=== PATIENT | female | born 1970 | race Caucasian/White ===

== ENCOUNTER 2023-06-01 15:50 | Emergency (ER) | payer OTHER, SELFPAY ==
[2023-06-01] VITALS (12 sets, daily range): BP systolic 105–123; BP diastolic 64–75; PULSE 56–69; RESP 18–20; TEMP 36.9; O2SAT 97–100; BMI 26.6
--- NOTE | 2023-06-01 16:22 | DI.RAD.S_ITS ---
PROCEDURE: XR CHEST 1V INDICATIONS: chest pain TECHNIQUE: One view of the chest was acquired. COMPARISON: None. FINDINGS: Surgical changes and devices: None. Lungs and pleura: Lungs are clear. Right mid to upper lobe nodule versus vessel on end. No pleural effusions or pneumothorax. Mediastinum: Mediastinal contours appear normal. Heart size is normal. Bones and chest wall: No suspicious bony lesions. Overlying soft tissues appear unremarkable. IMPRESSION: No acute cardiopulmonary process. Right mid to upper lobe nodule versus vessel on and. Recommend follow-up x-ray to assess stability or nonurgent CT of the chest follow-up. Dictated by: Issa Davis M.D. on 06/01/2023 at 17:14 Approved by: Issa Davis M.D. on 06/01/2023 at 17:15
[2023-06-01 16:48] LABS: Add Manual Diff / Slide Review NO; Basophils Absolute Auto 100 /uL (0-100); Basophils Percent Auto 0.7 % (0-2); Eosinophils Absolute Auto 100 /uL (0-450); Eosinophils Percent Auto 1.7 % (2-4); Hematocrit 38.3 % (36-46); Hemoglobin 12.3 g/dL (12.0-16.0); Lymphocytes Absolute Auto 2500 /uL (1100-4500); Lymphocytes Percent Auto 30.5 % (25-40); Mean Corpuscular HGB Conc 32.2 % (30-36); Mean Corpuscular Hemoglobin 24.8 PG (26-34); Monocytes Absolute Auto 500 /uL (0-900); Monocytes Percent Auto 5.8 % (3-14); Neutrophils Absolute Auto 5000 /uL (1500-7000); Neutrophils Percent Auto 61.3 % (50-75); Platelet Count 251 X10^3/uL (150-400); Red Blood Cell Count 4.97 X10^6/uL (4.0-5.2); Red Cell Distribution Width 25.8 % (11.6-14.8); White Blood Cell Count 8.2 X10^3/uL (4.5-11.0)
[2023-06-01 16:52] LABS: Prothrombin Time 11.2 SECONDS (10.1-12.7)
[2023-06-01 16:54] LABS: PTT Partial Thromboplastin Tim 32 SECONDS (26-36)
[2023-06-01 16:56] LABS: Alanine Aminotransferase 28 IU/L (<35); Albumin 4.6 g/dL (3.5-5.0); Albumin Globulin Ratio 1.4 (1.0-2.8); Alkaline Phosphatase 62 U/L (38-126); Aspartate Aminotransferase 35 IU/L (14-36); BUN Creatinine Ratio 16.3 (6-22); Bilirubin Total 0.3 mg/dL (0.2-1.3); Blood Urea Nitrogen 14 mg/dL (7-17); Calcium 9.6 mg/dL (8.4-10.2); Carbon Dioxide 26 mmol/L (22-32); Chloride 104 mmol/L (98-107); Creatine Kinase 241 U/L (30-135); Estimated Glomerular Filt Rate > 60 mL/min (>60); Globulin 3.2 g/dL (1.7-4.1); Glucose 92 mg/dL (70-100); HEMOLYSIS < 15 (0-50); Lipase 71 U/L (23-300); Magnesium 2.3 mg/dL (1.6-2.3); Potassium 3.8 mmol/L (3.4-5.1); Sodium 138 mmol/L (137-145); Total Protein 7.8 g/dL (6.3-8.2)
[2023-06-01 17:04] LABS: Microcytosis 1+
[2023-06-01 17:07] LABS: Troponin I < 0.012 ng/mL (0.01-0.034)
--- NOTE | 2023-06-01 18:01 | ED.CHESTPAIN ---
HPI - Chest Pain General Chief Complaint: Chest Pain Stated Complaint: low iron/feels like passing out Time Seen by Provider: 06/01/23 18:01 Source: patient Mode of arrival: Wheelchair Limitations: no limitations Related Data Allergies Allergy/AdvReac Type Severity Reaction Status Date / Time iodine Allergy Hives Verified 06/01/23 16:17 Patient History Social History Smoking Status: Never smoker Smoking Status: Never smoker alcohol intake frequency: holidays/special occasions only Substance Use Type: does not use Exam Initial Vital Signs Initial Vital Signs: Vital Signs Temperature 98.4 F 06/01/23 16:17 Pulse Rate 60 06/01/23 16:17 Respiratory Rate 18 06/01/23 16:17 Blood Pressure 123/75 06/01/23 16:17 Pulse Oximetry 99 06/01/23 16:17 Oxygen Delivery Method Room Air 06/01/23 16:17 Course Orders Ordered: ED Orders 06/01/23 16:22 XR chest 1V Stat EKG-12 Lead Stat 06/01/23 16:33 Complete Blood Count AUTO DIFF Stat Comprehensive Metabolic Panel Stat Lipase Stat Magnesium Stat PTT Partial Thromboplastin Festus Stat Prothrombin Time INR Stat Troponin & CK Cardiac Panel Stat Vital Signs Vital signs: Vital Signs - 8 hr 06/01/23 16:17 Temperature 98.4 F Pulse Rate 60 Respiratory Rate 18 Blood Pressure 123/75 Pulse Oximetry 99 Oxygen Delivery Method Room Air MDM - Chest Pain Lab Data 06/01/23 16:33 06/01/23 16:33 Labs: Lab Results 06/01/23 06/01/23 06/01/23 Range/Units 16:33 16:33 16:33 WBC 8.2 (4.5-11.0) X10^3/uL RBC 4.97 (4.0-5.2) X10^6/uL Hgb 12.3 (12.0-16.0) g/dL Hct 38.3 (36-46) % MCV 77.0 L (80-100) fL MCH 24.8 L (26-34) PG MCHC 32.2 (30-36) % RDW 25.8 H (11.6-14.8) % Plt Count 251 (150-400) X10^3/uL Neut % (Auto) 61.3 (50-75) % Lymph % (Auto) 30.5 (25-40) % [place] % (Auto) 5.8 (3-14) % Eos % (Auto) 1.7 L (2-4) % Baso % (Auto) 0.7 (0-2) % Neut # (Auto) 5000 (3502-5030) /uL Lymph # (Auto) 2500 (3669-4324) /uL [place] # (Auto) 500 (0-900) /uL Eos # (Auto) 100 (0-450) /uL Baso # (Auto) 100 (0-100) /uL RBC Morphology See below Microcytosis 1+ H PT 11.2 (10.1-12.7) SECONDS INR 1.0 (0.9-1.3) APTT 32 (26-36) SECONDS Sodium 138 (137-145) mmol/L Potassium 3.8 (3.4-5.1) mmol/L Chloride 104 (98-107) mmol/L Carbon Dioxide 26 (22-32) mmol/L BUN 14 (7-17) mg/dL Creatinine 0.86 (0.52-1.04) mg/dL Estimated GFR > 60 (>60) mL/min BUN/Creatinine Ratio 16.3 (6-22) Glucose 92 (70-100) mg/dL Calcium 9.6 (8.4-10.2) mg/dL Magnesium 2.3 (1.6-2.3) mg/dL Total Bilirubin 0.3 (0.2-1.3) mg/dL AST 35 (14-36) IU/L ALT 28 (<35) IU/L Alkaline Phosphatase 62 (38-126) U/L Total Creatine Kinase 241 H (30-135) U/L Troponin I < 0.012 (0.01-0.034) ng/mL Total Protein 7.8 (6.3-8.2) g/dL Albumin 4.6 (3.5-5.0) g/dL Globulin 3.2 (1.7-4.1) g/dL Albumin/Globulin Ratio 1.4 (1.0-2.8) Lipase 71 (23-300) U/L Discharge Plan Departure Referrals: Desire Leal, ELIZA [Primary Care Provider] -
--- NOTE | 2023-06-01 18:54 | PC.NURSE ---
pt has hx of celiac disease and states that she has always had a problem with being anemic. pt noticed that recently her periods have been very heavy and she has felt more dizzy and brain fog over the last few days. pt denies chest pain but states that sometimes she feels palpitations and tightness. pt denies SOB.
--- NOTE | 2023-06-01 21:35 | ED_ITS ---
HPI - Chest Pain General Chief Complaint: Chest Pain Stated Complaint: low iron/feels like passing out Time Seen by Provider: 06/01/23 18:01 Source: patient Mode of arrival: Wheelchair Limitations: no limitations History of Present Illness HPI narrative: Patient is a 53-year-old female who has a history of iron deficiency anemia heavy menstrual cycles presents today she feels like she might pass out she is had some thought difficulty some shortness of breath with exertion. She reports that she went to [place] 2 weeks ago she is a family history of DVTs. She is concerned because her iron levels are still low her PCP is ordering her an iron infusion. She denies any fever or chills she occasionally has chest pain and palpitations but not currently. She reports that she was on her menstrual cycle and it was very heavy. She is been seen by OB. She is currently asking if she can eat her pizza. Related Data Allergies Allergy/AdvReac Type Severity Reaction Status Date / Time iodine Allergy Hives Verified 06/01/23 16:17 Review of Systems Review of Systems ROS Unobtainable: All systems reviewed & are unremarkable except as noted in HPI and below Patient History Social History Smoking Status: Never smoker Smoking Status: Never smoker alcohol intake frequency: holidays/special occasions only Substance Use Type: does not use Exam Initial Vital Signs Initial Vital Signs: Vital Signs Temperature 98.4 F 06/01/23 16:17 Pulse Rate 60 06/01/23 16:17 Respiratory Rate 18 06/01/23 16:17 Blood Pressure 123/75 06/01/23 16:17 Pulse Oximetry 99 06/01/23 16:17 Oxygen Delivery Method Room Air 06/01/23 16:17 GENERAL: Alert well-appearing 53-year-old female and in no acute distress. HEENT: Head atraumatic,EOMI, pupils reactive, face symmetric, moist mucous membranes CARDIOVASCULAR: Regular rate and rhythm without murmurs, rubs or gallops. RESPIRATORY: Breath sounds equal bilaterally, no wheezes rales or rhonchi. ABDOMEN: Soft, nontender. Normoactive bowel sounds all 4 quadrants. No g uarding or rebound. EXTREMITIES: Normal range of motion, no clubbing or edema. Neurovascularly inta ct NEUROLOGICAL: Alert and oriented x4. SKIN: Warm, dry, no laceration, no petechiae, no rashes or lesions. Scores PERC Score Age greater than or equal to 50 years: Yes Heart rate greater than or equal to 100 bpm: No Room Air O2 Sat less than 95%: No Unilateral leg swelling: No Recent trauma or surgery: No Hemoptysis: No Prior PE or DVT: No Hormone Use: No Total PERC Score: 1 Course Orders Ordered: ED Orders 06/01/23 22:10 D Dimer Stat Vital Signs Vital signs: Vital Signs - 8 hr 06/01/23 21:00 06/01/23 21:01 06/01/23 21:01 Pulse Rate 56 L 56 L Blood Pressure 114/64 Pulse Oximetry 100 99 Oxygen Delivery Method Room Air Room Air 06/01/23 21:30 06/01/23 21:30 06/01/23 22:00 Pulse Rate 69 Blood Pressure 120/70 114/72 Pulse Oximetry 99 Oxygen Delivery Method Room Air 06/01/23 22:00 06/01/23 22:12 06/01/23 22:12 Pulse Rate 59 L 60 Blood Pressure 113/69 Pulse Oximetry 97 97 Oxygen Delivery Method Room Air Room Air 06/01/23 22:30 06/01/23 22:30 Pulse Rate 56 L Blood Pressure 113/65 Pulse Oximetry 97 Oxygen Delivery Method Room Air MDM - Chest Pain Lab Data 06/01/23 16:33 06/01/23 16:33 Labs: Lab Results 06/01/23 06/01/23 06/01/23 Range/Units 16:33 16:33 16:33 WBC 8.2 (4.5-11.0) X10^3/uL RBC 4.97 (4.0-5.2) X10^6/uL Hgb 12.3 (12.0-16.0) g/dL Hct 38.3 (36-46) % MCV 77.0 L (80-100) fL MCH 24.8 L (26-34) PG MCHC 32.2 (30-36) % RDW 25.8 H (11.6-14.8) % Plt Count 251 (150-400) X10^3/uL Neut % (Auto) 61.3 (50-75) % Lymph % (Auto) 30.5 (25-40) % [place] % (Auto) 5.8 (3-14) % Eos % (Auto) 1.7 L (2-4) % Baso % (Auto) 0.7 (0-2) % Neut # (Auto) 5000 (7108-3114) /uL Lymph # (Auto) 2500 (5361-9137) /uL [place] # (Auto) 500 (0-900) /uL Eos # (Auto) 100 (0-450) /uL Baso # (Auto) 100 (0-100) /uL RBC Morphology See below Microcytosis 1+ H PT 11.2 (10.1-12.7) SECONDS INR 1.0 (0.9-1.3) APTT 32 (26-36) SECONDS D-Dimer (<500) ng/ml Sodium 138 (137-145) mmol/L Potassium 3.8 (3.4-5.1) mmol/L Chloride 104 (98-107) mmol/L Carbon Dioxide 26 (22-32) mmol/L BUN 14 (7-17) mg/dL Creatinine 0.86 (0.52-1.04) mg/dL Estimated GFR > 60 (>60) mL/min BUN/Creatinine Ratio 16.3 (6-22) Glucose 92 (70-100) mg/dL Calcium 9.6 (8.4-10.2) mg/dL Magnesium 2.3 (1.6-2.3) mg/dL Total Bilirubin 0.3 (0.2-1.3) mg/dL AST 35 (14-36) IU/L ALT 28 (<35) IU/L Alkaline Phosphatase 62 (38-126) U/L Total Creatine Kinase 241 H (30-135) U/L Troponin I < 0.012 (0.01-0.034) ng/mL Total Protein 7.8 (6.3-8.2) g/dL Albumin 4.6 (3.5-5.0) g/dL Globulin 3.2 (1.7-4.1) g/dL Albumin/Globulin Ratio 1.4 (1.0-2.8) Lipase 71 (23-300) U/L 06/01/23 Range/Units 22:10 WBC (4.5-11.0) X10^3/uL RBC (4.0-5.2) X10^6/uL Hgb (12.0-16.0) g/dL Hct (36-46) % MCV (80-100) fL MCH (26-34) PG MCHC (30-36) % RDW (11.6-14.8) % Plt Count (150-400) X10^3/uL Neut % (Auto) (50-75) % Lymph % (Auto) (25-40) % [place] % (Auto) (3-14) % Eos % (Auto) (2-4) % Baso % (Auto) (0-2) % Neut # (Auto) (6855-0622) /uL Lymph # (Auto) (0781-4096) /uL [place] # (Auto) (0-900) /uL Eos # (Auto) (0-450) /uL Baso # (Auto) (0-100) /uL RBC Morphology Microcytosis PT (10.1-12.7) SECONDS INR (0.9-1.3) APTT (26-36) SECONDS D-Dimer < 215 (<500) ng/ml Sodium (137-145) mmol/L Potassium (3.4-5.1) mmol/L Chloride (98-107) mmol/L Carbon Dioxide (22-32) mmol/L BUN (7-17) mg/dL Creatinine (0.52-1.04) mg/dL Estimated GFR (>60) mL/min BUN/Creatinine Ratio (6-22) Glucose (70-100) mg/dL Calcium (8.4-10.2) mg/dL Magnesium (1.6-2.3) mg/dL Total Bilirubin (0.2-1.3) mg/dL AST (14-36) IU/L ALT (<35) IU/L Alkaline Phosphatase (38-126) U/L Total Creatine Kinase (30-135) U/L Troponin I (0.01-0.034) ng/mL Total Protein (6.3-8.2) g/dL Albumin (3.5-5.0) g/dL Globulin (1.7-4.1) g/dL Albumin/Globulin Ratio (1.0-2.8) Lipase (23-300) U/L Imaging Data Chest x-ray: Radiologist's Impression: PROCEDURE:? XR CHEST 1V ? INDICATIONS:? chest pain ? TECHNIQUE:? One view of the chest was acquired.? ? COMPARISON:? None. ? FINDINGS:? ? Surgical changes and devices:? None.? ? Lungs and pleura:? Lungs are clear.? Right mid to upper lobe nodule versus vessel on end. ?No pleural effusions or pneumothorax.? ? Mediastinum:? Mediastinal contours appear normal.? Heart size is normal.? ? Bones and chest wall:? No suspicious bony lesions.? Overlying soft tissues appear unremarkable.? ? IMPRESSION:? No acute cardiopulmonary process.? Right mid to upper lobe nodule versus vessel on and.? Recommend follow-up x-ray to assess stability or nonurgent CT of the chest follow-up.? ? Dictated by: Issa Davis M.D. on 06/01/2023 at 17:14 ? ? Approved by: Issa Davis M.D. on 06/01/2023 at 17:15 ? ECG Data Interpretation: Normal sinus rhythm rate 59 MO interval 216 QRS [address] changes no priors to compare MDM Narrative Medical decision making narrative: Patient through 53-year-old female presents with vague fatigue like symptoms. She is not anemic MCV is 77 iron studies are not ordered her PCP has done those. She is hemodynamic stable. She has a PERC score of 1 with a negative years D- dimer is negative unlikely to be pulmonary embolism. She has neurovascularly intact with a NIH stroke scale of 0. At this time recommend outpatient follow- up for her iron infusion. She certainly is not anemic requiring blood transfusion. She certainly has no evidence of sepsis. Discharge Plan Departure Patient Disposition: Home Clinical Impression: Fatigue Instructions: DI for Fatigue Activity Restrictions/Additional Instructions: *You have been diagnosed with fatigue *What to do: At this time please follow-up with your PCP in regards to your iron infusions. Blood work today is overall stable. *Continue to take medications as directed *Follow up with your primary care provider in 2-3 days or call [phone] *Return to ER if you should have increasing confusion shortness of breath or any new, worsening or concerning symptoms Referrals: Desire Leal ARNP [Primary Care Provider] - Stand Alone Forms: Patient Portal/API
[2023-06-01 22:36] LABS: D Dimer < 215 ng/ml (<500)
== END 2023-06-01 22:55 | disposition home or self-care (01) ==
PROVIDERS: Emergency Medicine; Emergency Provider Emergency Medicine; PCP Nurse Practitioner Family
DX: R53.83 Other fatigue (principal); R07.9 Chest pain, unspecified
CPT/HCPCS: 36415; 71045; 80053; 82550; 83690; 83735; 84484; 85025; 85379; 85610; 85730; 93005; 93010; 99284

== ENCOUNTER 2024-05-05 14:51 | Emergency (ER) | payer OTHER, SELFPAY ==
[2024-05-05] VITALS (10 sets, daily range): BP systolic 112–114; BP diastolic 65–75; PULSE 52–63; RESP 16; TEMP 36.7; O2SAT 91–97; BMI 26.6
--- NOTE | 2024-05-05 15:02 | DI.CT.S_ITS ---
PROCEDURE: CT ABDOMEN PELVIS W CON INDICATIONS: lower abd pain TECHNIQUE: After the administration of intravenous contrast, axial sections acquired from the lung bases to the pubic symphysis. Coronal and sagittal reformats were performed. For radiation dose reduction, the following was used: automated exposure control, adjustment of mA and/or kV according to patient size. COMPARISON: None. FINDINGS: Image quality: Diagnostic. Lower Chest: No significant findings. ABDOMEN: Liver: No solid mass. Gallbladder: No radiopaque gallstones or wall thickening. Biliary ducts: No biliary dilation. Pancreas: No ductal dilation. Spleen: Size is within normal limits. Adrenal Glands: No adrenal nodules. Kidneys and Ureters: No hydronephrosis. No solid mass. No complex renal cystic lesion which requires follow up. Stomach and Bowel: There is an apparent prior right hemicolectomy. The remaining colon is unremarkable. Negative for diverticulitis. No dilated loops of small bowel are seen. The stomach demonstrates no significant abnormality. Peritoneum: No abnormal intraperitoneal fluid. No free air. Ventral Wall: No significant ventral hernia. Abdominal Nodes: No retroperitoneal or mesenteric adenopathy by size criteria. Vessels: Aorta and inferior vena cava are normal in size. PELVIS: Pelvic Organs: This patient is status post hysterectomy. No adnexal masses are seen. Bladder: No bladder wall thickening, accounting for underdistention. Pelvic Nodes: No enlarged lymph nodes. Miscellaneous: No inguinal hernias are seen. Bones: No aggressive osseous abnormality. Age-appropriate bony degenerative changes are seen. IMPRESSION: No cause of lower abdominal pain can be seen. Negative for diverticulitis. Negative for bowel obstruction. Apparent prior right hemicolectomy. Please correlate with known patient history. Additional findings: Hysterectomy Dictated by: Nish Whitaker M.D. on 05/05/2024 at 16:11 Approved by: Nish Whitaker M.D. on 05/05/2024 at 16:13
[2024-05-05] MEDS: ONDANSETRON 4 MG/2 ML INJ IV (15:16)
[2024-05-05] MEDS: SODIUM CHLORIDE 0.9% 1,000 ML 1000 ML IV (15:16)
[2024-05-05 15:17] LABS: Add Manual Diff / Slide Review NO; Basophils Absolute Auto 100 /uL (0-100); Basophils Percent Auto 0.8 % (0-2); Eosinophils Absolute Auto 100 /uL (0-450); Eosinophils Percent Auto 1.5 % (2-4); Hematocrit 42.8 % (36-46); Hemoglobin 14.7 g/dL (12.0-16.0); Lymphocytes Absolute Auto 1800 /uL (1100-4500); Lymphocytes Percent Auto 20.7 % (25-40); Mean Corpuscular HGB Conc 34.2 % (30-36); Mean Corpuscular Hemoglobin 31.8 PG (26-34); Mean Corpuscular Volume 92.9 fL (80-100); Monocytes Absolute Auto 600 /uL (0-900); Monocytes Percent Auto 6.3 % (3-14); Neutrophils Absolute Auto 6300 /uL (1500-7000); Neutrophils Percent Auto 70.7 % (50-75); Platelet Count 218 X10^3/uL (150-400); Red Blood Cell Count 4.61 X10^6/uL (4.0-5.2); Red Cell Distribution Width 13.2 % (11.6-14.8); White Blood Cell Count 8.9 X10^3/uL (4.5-11.0)
--- NOTE | 2024-05-05 15:17 | ED_ITS ---
HPI - Abdominal Pain <ELIZA Payne - Last Filed: 05/05/24 17:51> General Chief Complaint: Abdominal Pain Stated Complaint: lower abd px Time Seen by Provider: 05/05/24 15:02 Source: patient Mode of arrival: Family Vehicle History of Present Illness HPI narrative: 53-year-old female, with history of celiac disease, hysterectomy, appendectomy, presents to the emergency department with right lower quadrant pain x 2 hours. Patient reports that she had a colonoscopy and EGD earlier this year that were both normal. Patient reports that she and her ate a sandwich and clam chowder, and shortly afterwards started having this right lower quadrant cramping pain. Patient's was not experiencing any symptoms. Patient states it would be a severe cramp that would slowly resolve spontaneously. Last bowel movement was 45 minutes ago. Related Data Allergies Allergy/AdvReac Type Severity Reaction Status Date / Time iodine Allergy Hives Verified 06/01/23 16:17 Review of Systems <ELIZA Payne - Last Filed: 05/05/24 17:51> Review of Systems Narrative: Narrative: See HPI. GENERAL: Denies chills, fatigue, fever, sweats. HEENT: Denies sinus pain, ear pain, sore throat, difficulty swallowing, dizziness. RESPIRATORY: Denies dyspnea, cough, wheezing, sputum. CARDIOVASCULAR: Denies chest pain, palpitations, edema. GASTROINTESTINAL: Denies nausea, vomiting, diarrhea, constipation. Endorses right lower quadrant abdominal pain. : Denies dysuria, frequency, incontinence, hematuria, urinary retention, flank pain. MSK: Denies weakness, joint pain, or bony pain. SKIN: Denies rash, skin lesions, or pruritis. NEUROLOGIC: Denies weakness, dizziness, headache, numbness, confusion. PSYCHIATRIC: No concerning psychosocial issues. Patient History <ELIZA Payne - Last Filed: 05/05/24 17:51> Social History Smoking Status: Never smoker Smoking Status: Never smoker alcohol intake frequency: holidays/special occasions only Substance Use Type: does not use Exam <ELIZA Payne - Last Filed: 05/05/24 17:51> Narrative Exam Narrative: Exam Narrative: GENERAL: This is a well-nourished, well-developed patient, in no acute distress. HEAD: Atraumatic. Normocephalic. EYES: Pupils equal round and reactive. Extraocular motions intact. No scleral icterus, injection or drainage. ENT: Nose without bleeding, purulent drainage. Throat without erythema, tonsillar hypertrophy or exudate. Uvula midline. Airway patent. TMs and canals clear. No sinus tenderness. NECK: Trachea midline. No JVD or lymphadenopathy. Nontender. CARDIOVASCULAR: Regular rate and rhythm without murmurs, peripheral pulses intact, cap refill <2 sec. RESPIRATORY: Breath sounds equal and clear bilaterally. No wheezes, rales, or rhonchi. No cough. No increased respiratory effort. No accessory muscle use. GASTROINTESTINAL: Abdomen soft, tenderness of right lower quadrant, nondistended without guarding or rebound. Mild suprapubic pain. MSK: Moves all extremities. Normal range of motion, no clubbing or edema. Neurovascularly intact. NEURO: A&O x 3. SKIN: Warm, dry, no rashes or lesions noted. Initial Vital Signs Initial Vital Signs: Vital Signs Temperature 98.1 F 05/05/24 14:53 Pulse Rate 62 05/05/24 14:53 Respiratory Rate 16 05/05/24 14:53 Blood Pressure 114/75 05/05/24 14:53 Pulse Oximetry 97 05/05/24 14:53 Oxygen Delivery Method Room Air 05/05/24 14:53 Reviewed <Demar Martinez DO - Last Filed: 05/05/24 18:00> Initial Vital Signs Initial Vital Signs: Vital Signs Temperature 98.1 F 05/05/24 14:53 Pulse Rate 62 05/05/24 14:53 Respiratory Rate 16 05/05/24 14:53 Blood Pressure 114/75 05/05/24 14:53 Pulse Oximetry 97 05/05/24 14:53 Oxygen Delivery Method Room Air 05/05/24 14:53 Course <ELIZA Payne - Last Filed: 05/05/24 17:51> Orders Ordered: ED Orders 05/05/24 15:02 CT abdomen pelvis w con Stat 05/05/24 15:09 Complete Blood Count AUTO DIFF Stat Comprehensive Metabolic Panel Stat Lipase Stat Discontinued Medications Diphenhydramine HCl (Diphenhydramine 50 Mg/Ml Vial) 25 mg IV NOW ONE Stop: 05/05/24 15:39 Last Admin: 05/05/24 15:45 Dose: 25 mg Documented By: BENJI Sodium Chloride (Normal Saline 0.9%) 1,000 mls @ 1,000 mls/hr IV BOLUS ONE Stop: 05/05/24 16:01 Last Infusion: 05/05/24 17:18 Dose: Infused Documented By: Admin: 05/05/24 15:16 Dose: 1,000 mls/hr Documented By: ZAHIDA Methylprednisolone (Methylprednisolone 125 Mg/2 Ml Vial) 125 mg IV NOW ONE Stop: 05/05/24 15:39 Last Admin: 05/05/24 15:44 Dose: 125 mg Documented By: BENJI Ondansetron HCl (Ondansetron 4 Mg/2 Ml Inj) 4 mg IV NOW ONE Stop: 05/05/24 15:03 Last Admin: 05/05/24 15:16 Dose: 4 mg Documented By: ZAHIDA Vital Signs Vital signs: Vital Signs - 8 hr 05/05/24 14:53 05/05/24 15:19 05/05/24 15:30 Temperature 98.1 F Pulse Rate 62 63 55 L Respiratory Rate 16 Blood Pressure 114/75 Pulse Oximetry 97 97 91 Oxygen Delivery Method Room Air 05/05/24 16:00 05/05/24 16:30 05/05/24 17:00 Temperature Pulse Rate 54 L 52 L 59 L Respiratory Rate Blood Pressure Pulse Oximetry 96 95 94 Oxygen Delivery Method <Demar Martinez DO - Last Filed: 05/05/24 18:00> Orders Ordered: ED Orders 05/05/24 15:02 CT abdomen pelvis w con Stat 05/05/24 15:09 Complete Blood Count AUTO DIFF Stat Comprehensive Metabolic Panel Stat Lipase Stat Discontinued Medications Diphenhydramine HCl (Diphenhydramine 50 Mg/Ml Vial) 25 mg IV NOW ONE Stop: 05/05/24 15:39 Last Admin: 05/05/24 15:45 Dose: 25 mg Documented By: BENJI Sodium Chloride (Normal Saline 0.9%) 1,000 mls @ 1,000 mls/hr IV BOLUS ONE Stop: 05/05/24 16:01 Last Infusion: 05/05/24 17:18 Dose: Infused Documented By: Admin: 05/05/24 15:16 Dose: 1,000 mls/hr Documented By: ZAHIDA Methylprednisolone (Methylprednisolone 125 Mg/2 Ml Vial) 125 mg IV NOW ONE Stop: 05/05/24 15:39 Last Admin: 05/05/24 15:44 Dose: 125 mg Documented By: BENJI Ondansetron HCl (Ondansetron 4 Mg/2 Ml Inj) 4 mg IV NOW ONE Stop: 05/05/24 15:03 Last Admin: 05/05/24 15:16 Dose: 4 mg Documented By: ZAHIDA Vital Signs Vital signs: Vital Signs - 8 hr 05/05/24 14:53 05/05/24 15:19 05/05/24 15:30 Temperature 98.1 F Pulse Rate 62 63 55 L Respiratory Rate 16 Blood Pressure 114/75 Pulse Oximetry 97 97 91 Oxygen Delivery Method Room Air 05/05/24 16:00 05/05/24 16:30 05/05/24 17:00 Temperature Pulse Rate 54 L 52 L 59 L Respiratory Rate Blood Pressure Pulse Oximetry 96 95 94 Oxygen Delivery Method MDM - Abdominal Pain <ELIZA Payne - Last Filed: 05/05/24 17:51> Differential Diagnosis Differential diagnosis: Likely abdominal pain Lab Data 05/05/24 15:09 05/05/24 15:09 Labs: Lab Results 05/05/24 Range/Units 15:09 WBC 8.9 (4.5-11.0) X10^3/uL RBC 4.61 (4.0-5.2) X10^6/uL Hgb 14.7 (12.0-16.0) g/dL Hct 42.8 (36-46) % MCV 92.9 (80-100) fL MCH 31.8 (26-34) PG MCHC 34.2 (30-36) % RDW 13.2 (11.6-14.8) % Plt Count 218 (150-400) X10^3/uL Neut % (Auto) 70.7 (50-75) % Lymph % (Auto) 20.7 L (25-40) % [place] % (Auto) 6.3 (3-14) % Eos % (Auto) 1.5 L (2-4) % Baso % (Auto) 0.8 (0-2) % Neut # (Auto) 6300 (4667-7622) /uL Lymph # (Auto) 1800 (1769-3526) /uL [place] # (Auto) 600 (0-900) /uL Eos # (Auto) 100 (0-450) /uL Baso # (Auto) 100 (0-100) /uL Sodium 139 (137-145) mmol/L Potassium 3.8 (3.4-5.1) mmol/L Chloride 108 H (98-107) mmol/L Carbon Dioxide 26 (22-32) mmol/L BUN 21 H (7-17) mg/dL Creatinine 0.83 (0.52-1.04) mg/dL Estimated GFR > 60 (>60) mL/min BUN/Creatinine Ratio 25.3 H (6-22) Glucose 113 H (70-100) mg/dL Calcium 9.3 (8.4-10.2) mg/dL Total Bilirubin 0.7 (0.2-1.3) mg/dL AST 34 (14-36) IU/L ALT 24 (<35) IU/L Alkaline Phosphatase 66 (38-126) U/L Total Protein 7.4 (6.3-8.2) g/dL Albumin 4.4 (3.5-5.0) g/dL Globulin 3.0 (1.7-4.1) g/dL Albumin/Globulin Ratio 1.5 (1.0-2.8) Lipase 49 (23-300) U/L Point of care testing: Urine Dip Bedside Urine Glucose Negative Bedside Urine Bilirubin - Negative Bedside Urine Ketone - Negative Urine Specific [place] 1.005 Bedside Urine Occult Blood - Negative Bedside Urine pH 6.0 Bedside Urine Protein - Negative Bedside Urine Urobilinogen - Negative Bedside Urine Nitrite - Negative Bedside Urine Leukocytes - Negative Esterase Imaging Data CT scan - abdomen/pelvis: Radiologist's Impression: [address] [address] [address] Scan Report Signed Patient: Norma Martinez MR#: [id number] : 1970 Acct:[id number] Age/Sex: 53 / F Date of Service: 05/05/24 Loc: ED Accession Number: [id number] Procedure: CT abdomen pelvis w con Ordering Provider: Demar Martinez D.O. PROCEDURE: CT ABDOMEN PELVIS W CON INDICATIONS: lower abd pain TECHNIQUE: After the administration of intravenous contrast, axial sections acquired from the lung bases to the pubic symphysis. Coronal and sagittal reformats were performed. For radiation dose reduction, the following was used: automated exposure control, adjustment of mA and/or kV according to patient size. COMPARISON: None. FINDINGS: Image quality: Diagnostic. Lower Chest: No significant findings. ABDOMEN: Liver: No solid mass. Gallbladder: No radiopaque gallstones or wall thickening. Biliary ducts: No biliary dilation. Pancreas: No ductal dilation. Spleen: Size is within normal limits. Adrenal Glands: No adrenal nodules. Kidneys and Ureters: No hydronephrosis. No solid mass. No complex renal cystic lesion which requires follow up. Stomach and Bowel: There is an apparent prior right hemicolectomy. The remaining colon is unremarkable. Negative for diverticulitis. No dilated loops of small bowel are seen. The stomach demonstrates no significant abnormality. Peritoneum: No abnormal intraperitoneal fluid. No free air. Ventral Wall: No significant ventral hernia. Abdominal Nodes: No retroperitoneal or mesenteric adenopathy by size criteria. Vessels: Aorta and inferior vena cava are normal in size. PELVIS: Pelvic Organs: This patient is status post hysterectomy. No adnexal masses are seen. Bladder: No bladder wall thickening, accounting for underdistention. Pelvic Nodes: No enlarged lymph nodes. Miscellaneous: No inguinal hernias are seen. Bones: No aggressive osseous abnormality. Age-appropriate bony degenerative changes are seen. IMPRESSION: No cause of lower abdominal pain can be seen. Negative for diverticulitis. Negative for bowel obstruction. Apparent prior right hemicolectomy. Please correlate with known patient history. Additional findings: Hysterectomy Dictated by: Nish Whitaker M.D. on 05/05/2024 at 16:11 Approved by: Nish Whitaker M.D. on 05/05/2024 at 16:13 [facility] Narrative Medical decision making narrative: 53-year-old female with right lower quadrant abdominal pain. Assessment was concerning due to the amount of pain patient is experiencing, especially considering history of a appendectomy. Patient reports pain as a 6/[address] but declined [address] medication[address] CT scan was negative for diverticulitis and bowel obstruction. No evident reason for abdominal pain. Discussed findings with patient and and that there is no evident reason for her pain. Recommended adequate hydration and follow up with family doctor as needed. Discussed the need to return to the emergency department for worsening pain or other symptoms. Patient and spouse verbalized understanding and were agreeable with course of action. <Demar Martinez, DO - Last Filed: 05/05/24 18:00> Lab Data Labs: Lab Results 05/05/24 Range/Units 15:09 WBC 8.9 (4.5-11.0) X10^3/uL RBC 4.61 (4.0-5.2) X10^6/uL Hgb 14.7 (12.0-16.0) g/dL Hct 42.8 (36-46) % MCV 92.9 (80-100) fL MCH 31.8 (26-34) PG MCHC 34.2 (30-36) % RDW 13.2 (11.6-14.8) % Plt Count 218 (150-400) X10^3/uL Neut % (Auto) 70.7 (50-75) % Lymph % (Auto) 20.7 L (25-40) % [place] % (Auto) 6.3 (3-14) % Eos % (Auto) 1.5 L (2-4) % Baso % (Auto) 0.8 (0-2) % Neut # (Auto) 6300 (3293-1759) /uL Lymph # (Auto) 1800 (1481-4513) /uL [place] # (Auto) 600 (0-900) /uL Eos # (Auto) 100 (0-450) /uL Baso # (Auto) 100 (0-100) /uL Sodium 139 (137-145) mmol/L Potassium 3.8 (3.4-5.1) mmol/L Chloride 108 H (98-107) mmol/L Carbon Dioxide 26 (22-32) mmol/L BUN 21 H (7-17) mg/dL Creatinine 0.83 (0.52-1.04) mg/dL Estimated GFR > 60 (>60) mL/min BUN/Creatinine Ratio 25.3 H (6-22) Glucose 113 H (70-100) mg/dL Calcium 9.3 (8.4-10.2) mg/dL Total Bilirubin 0.7 (0.2-1.3) mg/dL AST 34 (14-36) IU/L ALT 24 (<35) IU/L Alkaline Phosphatase 66 (38-126) U/L Total Protein 7.4 (6.3-8.2) g/dL Albumin 4.4 (3.5-5.0) g/dL Globulin 3.0 (1.7-4.1) g/dL Albumin/Globulin Ratio 1.5 (1.0-2.8) Lipase 49 (23-300) U/L Point of care testing: Urine Dip Bedside Urine Glucose Negative Bedside Urine Bilirubin - Negative Bedside Urine Ketone - Negative Urine Specific [place] 1.005 Bedside Urine Occult Blood - Negative Bedside Urine pH 6.0 Bedside Urine Protein - Negative Bedside Urine Urobilinogen - Negative Bedside Urine Nitrite - Negative Bedside Urine Leukocytes - Negative Esterase Discharge Plan Departure Patient Disposition: Home Clinical Impression: Abdominal pain Qualifiers: Abdominal location: right lower quadrant Qualified Code(s): R10.31 - Right lower quadrant pain Instructions: DI for Abdominal Pain-Adult Activity Restrictions/Additional Instructions: *You have been diagnosed with abdominal pain. I am sorry that you are having to deal with this. The CT did not reveal any reason for your pain. Your labs were non concerning. I recommend you get plenty of rest, hydrate well and follow up with your family doctor as needed. For any worsening symptoms, please feel free to return to the emergency department. *What to do: *Please continue to take your regular medications as directed. [ ] New medication prescriptions sent to your pharmacy: [ ] [ ] New medication written as a paper prescription [x ] No new medications given *Please follow up with your primary care provider in 2-3 days, call for an appointment. Let them know you were seen in the Emergency Department and that we ask that you be seen in follow up. We will electronically transmit a record of today's note if your PCP is in our system *If you do not have a primary care provider please contact the [facility] Resource line at [phone]. They will ask some questions about your medical history and help get you set up with a doctor in the community. ? Return to ER if you should have any new, worsening or concerning symptoms, such as worsening pain, severe headache, confusion, chest pain, difficulty breathing, fever greater than 101 F, shaking chills, persistent vomiting to the point that you cannot drink fluids, or other new or worsening symptoms. Referrals: Desire Leal ARNP [Primary Care Provider] - Stand Alone Forms: Patient Portal/API ED Sign-out <Demar Martinez DO - Last Filed: 05/05/24 18:00> Cosign ED Attending Cosignature Attestation: Dr Martinez Co-Sign Statement: I was available for consultation during this patient's emergency department visit. This chart is signed by myself for administrative purposes only. I did not have direct contact with this patient during this visit. They were seen independently by the APC.
[2024-05-05 15:29] LABS: Alanine Aminotransferase 24 IU/L (<35); Albumin 4.4 g/dL (3.5-5.0); Albumin Globulin Ratio 1.5 (1.0-2.8); Alkaline Phosphatase 66 U/L (38-126); Aspartate Aminotransferase 34 IU/L (14-36); BUN Creatinine Ratio 25.3 (6-22); Bilirubin Total 0.7 mg/dL (0.2-1.3); Blood Urea Nitrogen 21 mg/dL (7-17); Calcium 9.3 mg/dL (8.4-10.2); Carbon Dioxide 26 mmol/L (22-32); Chloride 108 mmol/L (98-107); Estimated Glomerular Filt Rate > 60 mL/min (>60); Glucose 113 mg/dL (70-100); HEMOLYSIS < 15 (0-50); Lipase 49 U/L (23-300); Potassium 3.8 mmol/L (3.4-5.1); Sodium 139 mmol/L (137-145); Total Protein 7.4 g/dL (6.3-8.2)
[2024-05-05] MEDS: methylPREDNISolone 125 MG/2 ML VIAL IV (15:44)
[2024-05-05] MEDS: diphenhydrAMINE 50 MG/ML VIAL 25 MG IV (15:45)
== END 2024-05-05 18:10 | disposition home or self-care (01) ==
PROVIDERS: Emergency Medicine; Emergency Provider Registered Nurse; PCP Nurse Practitioner Family
DX: R10.31 Right lower quadrant pain (principal)
CPT/HCPCS: 36415; 74177; 80053; 81003; 83690; 85025; 96361; 96374; 96375; 99284; J1200; J2405; J2919; Q9967